=== PATIENT | female | born 1940 ===

== ENCOUNTER 2018-05-24 13:47 | Outpatient (CLI) | payer OTHER ==
[~2018-05-24] VITALS: Ht 160 cm; Wt 62.6 kg
== END 2018-05-24 14:10 | disposition home or self-care (01) ==
LOC: OFIC 805 13:47
DX: H66.001 Acute suppurative otitis media without spontaneous rupture of ear drum, right ear (principal); H90.41 Sensorineural hearing loss, unilateral, right ear, with unrestricted hearing on the contralateral side; H61.23 Impacted cerumen, bilateral